=== PATIENT | female | born 1970 | race American Indian/Alaskan Native ===

== ENCOUNTER 2021-06-22 00:55 | Emergency (ER) | payer SELFPAY ==
--- NOTE | 2021-06-22 01:19 | Emergency Department Report ---
HPI - General Chief Complaint: Extremity Injury, Lower Time Seen by Provider: 06/22/21 01:07 - [facility] HPI: Room 22 The patient is a 51-year-old female present with a chief complaint of right lower extremity pain. Patient states since yesterday she had pain radiating from the right thigh down to her foot. 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 Patient states standing up and certain movements worsen the pain. The patient drove herself to the emergency department ED Past Medical Hx - Past Medical History Hx Asthma: Yes - Surgical History Hx Breast Surgery: No Additional Surgical History: , tummy tuck - Family History Family history: no significant - Social History Smoking Status: Never Smoker Substance Use Type: None (Denies illicit drug use), Alcohol (Occasional) - Medications Home Medications: Home Medications Medication Instructions Recorded Confirmed Last Taken Type Albuterol Sulfate [Ventolin HFA] 2 puff IH Q4H PRN #1 hfa.aer.ad 09/02/15 Unknown Rx Fluticasone/Salmeterol [Advair 1 each IH BID #1 disk.w.dev 09/02/15 Unknown Rx 250-50 Diskus] predniSONE [Deltasone] 50 mg PO QDAY #6 tab 09/02/15 Unknown Rx Cyclobenzaprine [Flexeril] 10 mg PO TID PRN #10 tablet 06/22/21 Unknown Rx HYDROcodone/APAP 5-325 [[place] 1 - 2 each PO Q6HR PRN #14 tablet 06/22/21 Unknown Rx 5/325] Ibuprofen [Motrin 800 MG tab] 800 mg PO Q8HR PRN #20 tablet 06/22/21 Unknown Rx ED Review of Systems ROS: Stated complaint: LEG PAIN Other details as noted in HPI Constitutional: no symptoms reported Eyes: denies: eye pain ENT: denies: throat pain Respiratory: no symptoms reported Cardiovascular: denies: chest pain Endocrine: no symptoms reported Gastrointestinal: denies: abdominal pain Musculoskeletal: myalgia Neurological: denies: headache Physical Exam - Physical Exam Vital Signs: Vital Signs 06/22/21 00:58 Temperature 99.1 F Pulse Rate 111 H Respiratory 17 Rate Blood Pressure 130/94 [Right] O2 Sat by Pulse 96 Oximetry Physical Exam: GENERAL: The patient is well-developed well-nourished []. [] HEENT: Normocephalic. Atraumatic. Extraocular motions are intact. Patient has moist mucous membranes. NECK: Supple. No meningitic signs are noted. There is no adenopathy noted. CHEST/LUNGS: Clear to auscultation. There is no respiratory distress noted. HEART/CARDIOVASCULAR: Regular. There is no tachycardia. There is no gallop rub or murmur. ABDOMEN: Abdomen is soft, nontender. Patient has normal bowel sounds. There is no abdominal distention. SKIN: There is no rash. There is no diaphoresis. NEURO: The patient is awake, alert, and oriented. The patient is cooperative. The patient has no focal neurologic deficits. The patient has normal speech and gait. MUSCULOSKELETAL: There is a positive straight leg raise test to the right lower extremity. There is no tenderness to palpation of the right lower extremity ED Course Vital Signs 06/22/21 00:58 Temperature 99.1 F Pulse Rate 111 H Respiratory 17 Rate Blood Pressure 130/94 [Right] O2 Sat by Pulse 96 Oximetry ED Medical Decision Making - Radiology Data Radiology results: report reviewed (Right lower extremity Doppler), image reviewed (Right lower extremity Doppler) [facility] [address] [place] [address] Vascular Lab Report Signed Patient: JIGAR SCHREIBER MR#: [id number] : 1970 Acct:[id number] Age/Sex: 51 / F ADM Date: 06/22/21 Loc: ED Attending Dr: Ordering Physician: SHAYNA DRISCOLL MD Date of Service: 06/22/21 Procedure(s): VL venous duplex LE RT Accession Number(s): [id number] cc: SHAYNA DRISCOLL MD DUPLEX DOPPLER LOWER EXTREMITY VEINS, RIGHT INDICATION / CLINICAL INFORMATION: Pain. TECHNIQUE: Duplex doppler imaging was performed through the veins of the right lower extremity using venous compression and other maneuvers. COMPARISON: None available. FINDINGS: RIGHT COMMON FEMORAL VEIN: Negative. RIGHT FEMORAL VEIN: Negative. RIGHT POPLITEAL VEIN: Negative. RIGHT CALF VEINS: Negative. ADDITIONAL FINDINGS: None. IMPRESSION: 1. No sonographic evidence for DVT in the right lower extremity. Signer Name: Nabila Velazquez MD Signed: 06/22/2021 3:54 AM Workstation Name: [id number] Transcribed By: FUNMILAYO Dictated By: NABILA VELAZQUEZ MD Electronically Authenticated By: NABILA VELZAQUEZ MD Signed Date/Time: 06/22/21353 DD/ 3 TD/TT: Print Cancel - Differential Diagnosis Sciatica, DVT Critical care attestation.: If time is entered above; I have spent that time in minutes in the direct care of this critically ill patient, excluding procedure time. ED Disposition Clinical Impression: Sciatica of right side Disposition: HOME / SELF CARE / HOMELESS Is pt being admited?: No Does the pt Need Aspirin: No Condition: Stable Instructions: Sciatica, Uxsy-re-Zyjy, Sciatica Rehab-SportsMed Additional Instructions: Return to the emergency department should you develop worsening symptoms, inability to tolerate food or liquids, high fever or any other concerns Prescriptions: Cyclobenzaprine [Flexeril] 10 mg PO TID PRN #10 tablet PRN Reason: Muscle Spasm Ibuprofen [Motrin 800 MG tab] 800 mg PO Q8HR PRN #20 tablet PRN Reason: Pain, Moderate (4-6) HYDROcodone/APAP 5-325 [[place] 5/325] 1 - 2 each PO Q6HR PRN #14 tablet PRN Reason: Pain Referrals: AYAAN GARCIA MD [Staff Physician] - 3-5 Days (Dr Garcia is an orthopedic surgeon. Please follow-up with him for further evaluation) Time of Disposition: 04:03
[2021-06-22] MEDS ORDERED: KETOROLAC 60 MG/2 ML INJ IM ONE (01:20)
[2021-06-22 03:34] VITALS: BP 149/74
--- NOTE | 2021-06-22 03:59 | Vascular Lab Report ---
DUPLEX DOPPLER LOWER EXTREMITY VEINS, RIGHT INDICATION / CLINICAL INFORMATION: Pain. TECHNIQUE: Duplex doppler imaging was performed through the veins of the right lower extremity using venous comp ression and other maneuvers. COMPARISON: None available. FINDINGS: RIGHT COMMON FEMORAL VEIN: Negative. RIGHT FEMORAL VEIN: Negative. RIGHT POPLITEAL VEIN: Negative. RIGHT CALF VEINS: Negative. ADDITIONAL FINDINGS: None. IMPRESSION: 1. No sonographic evidence for DVT in the right lower extremity. Signer Name: Reed Velazquez MD Signed: 06/22/2021 3:54 AM Workstation Name: [id number]
== END 2021-06-22 04:20 | disposition home or self-care (01) ==
LOC: ED 00:55
DX: M54.31 Sciatica, right side (principal); J45.909 Unspecified asthma, uncomplicated
CPT/HCPCS: 93971; 96372; 99283; J1885